=== PATIENT | female | born 1960 | race Native Hawaiian/Other Pacific Islander ===

== ENCOUNTER 2017-06-11 13:12 | Emergency (ER) | payer OTHER ==
[2017-06-11 13:19] VITALS: BP 127/84; PULSE 97; RESP 16; TEMP 98.4; O2SAT 97
--- NOTE | 2017-06-11 14:11 | C.PDOC ---
History Of Present Illness 57 year old female presents to the ED with complaints of productive cough and sore throat for approximately 5 days, worse at night. Patient states she has difficulty sleeping at night due to cough. She denies fever, chest pain, SOB, neck pain, ear pain. Time Seen by Provider: 06/11/17 13:24 Chief Complaint (Nursing): ENT Problem History Per: Patient History/Exam Limitations: no limitations Onset/Duration Of Symptoms: Days (x 5) Current Symptoms Are (Timing): Still Present Location Of Pain: Throat Associated Symptoms: Sore Throat, Cough (Productive). denies: Fever, Other ( Chest pain, Palpitations) Ear Symptoms: Bilateral: None Severity: Mild Past Medical History Reviewed: Historical Data, Nursing Documentation, Vital Signs Vital Signs: Last Vital Signs Temp 98.4 F 06/11/17 13:18 Pulse 97 H 06/11/17 13:18 Resp 16 06/11/17 13:18 BP 127/84 06/11/17 13:18 Pulse Ox 97 06/11/17 16:47 - Medical History PMH: No Chronic Diseases Family History: States: No Known Family Hx - Social History Hx Alcohol Use: No Hx Substance Use: No - Immunization History Hx Tetanus Toxoid Vaccination: No Hx Influenza Vaccination: No Hx Pneumococcal Vaccination: No Review Of Systems Except As Marked, All Systems Reviewed And Found Negative. Constitutional: Negative for: Fever, Chills ENT: Positive for: Throat Pain. Negative for: Ear Pain, Nose Congestion Respiratory: Positive for: Cough, Sputum Gastrointestinal: Negative for: Abdominal Pain Skin: Negative for: Rash Physical Exam - Physical Exam Appears: Well, Non-toxic, Other (hoarse voice, speaking full sentences) Skin: Normal Color, Warm, Dry Eye(s): right: Normal Inspection, left: Other (Injected sclera) Oral Mucosa: Moist Neck: Normal, Supple Cardiovascular: Rhythm Regular Respiratory: Normal Breath Sounds, No Rales, No Rhonchi, No Wheezing Neurological/Psych: Oriented x3 ED Course And Treatment O2 Sat by Pulse Oximetry: 97 (RA) Pulse Ox Interpretation: Normal - Other Rad Chest X-Ray (two views) X-Ray: Viewed By Me, Read By Radiologist Interpretation: HISTORY: COMPARISON: No prior. TECHNIQUE: Chest PA and lateral. FINDINGS: LINES AND TUBES: None. LUNG AND PLEURA: The lungs are well inflated and the right lung is clear. There is patchy airspace disease in the lingula and left lower lobe. HEART AND MEDIASTINUM: The heart is not enlarged. The hilar and mediastinal contours are within normal limits. SKELETAL STRUCTURES: The bony structures are within normal limits for the patient's age. VISUALIZED UPPER ABDOMEN: Normal. OTHER FINDINGS: None. IMPRESSION: Multifocal pneumonia in the lingula and left lower lobe. Follow- up to resolution is advised. Progress Note: CXR ordered and reviewed - shows left sided infiltrate. Patient given PO Avelox, Sudafed and Tessalon. Rxs for Avelox and Tessalon given. Patient instructed to follow up with PMD in 1-2 days, and understands she should return to ED if symptoms worsen. Disposition Counseled Patient/Family Regarding: Studies Performed, Diagnosis, Need For Followup, Rx Given - Disposition Referrals: Cassy Barrow MD [Staff Provider] - Disposition: HOME/ ROUTINE Disposition Time: 14:15 Condition: STABLE Additional Instructions: FOLLOW UP WITH YOUR DOCTOR IN 1-2 DAYS USE MEDICATIONS DIRECTED DRINK PLENTY OF FLUIDS RETURN TO ER IF SYMPTOMS WORSEN Prescriptions: Benzonatate [Tessalon Perles] 100 mg PO BID PRN #15 sgl PRN Reason: Cough Moxifloxacin [Avelox] 400 mg PO DAILY #7 tab Instructions: Pneumonia in Adults Forms: [facility] (Occitan) Print Language: BURMESE - Clinical Impression Clinical Impression: Pneumonia - Scribe Statement The provider has reviewed the documentation as recorded by the Abhinavibayesha Treviño All medical record entries made by the Abhinavibe were at my direction and personally dictated by me. I have reviewed the chart and agree that the record accurately reflects my personal performance of the history, physical exam, medical decision making, and the department course for this patient. I have also personally directed, reviewed, and agree with the discharge instructions and disposition.
--- NOTE | 2017-06-11 14:31 | RAD ---
HISTORY: COMPARISON: No prior. TECHNIQUE: Chest PA and lateral FINDINGS: LINES AND TUBES: None. LUNG AND PLEURA: The lungs are well inflated and the right lung is clear. There is patchy airspace disease in the lingula and left lower lobe. HEART AND MEDIASTINUM: The heart is not enlarged. The hilar and mediastinal contours are within normal limits. SKELETAL STRUCTURES: The bony structures are within normal limits for the patient's age. VISUALIZED UPPER ABDOMEN: Normal. OTHER FINDINGS: None. IMPRESSION: Multifocal pneumonia in the lingula and left lower lobe. Follow-up to resolution is advised.
== END 2017-06-11 14:35 | disposition home or self-care (01) ==
LOC: C.ER 13:12
DX: J18.9 Pneumonia, unspecified organism (principal)

== ENCOUNTER 2018-04-26 10:47 | Emergency (ER) | payer OTHER ==
[2018-04-26 10:57] VITALS: BMI 24.3
[2018-04-26 10:58] VITALS: TEMP 98.8; O2SAT 97
[2018-04-26 12:23] VITALS: BP 134/72; PULSE 85; RESP 18
--- NOTE | 2018-04-26 15:50 | C.PDOC ---
History Of Present Illness 58 y/o female presents to the ER complaining of sore throat which has become gradually worse over the past 1 week. Patient states that she has pain with swallowing. Patient reports that she is able to tolerate PO. She notes that she has subjective fever. Denies having cough, sick contacts, and recent travel. Chief Complaint (Nursing): Cough, Cold, Congestion History Per: Patient History/Exam Limitations: no limitations Onset/Duration Of Symptoms: Days Current Symptoms Are (Timing): Still Present Severity: Moderate Past Medical History Reviewed: Historical Data, Nursing Documentation, Vital Signs Vital Signs: Last Vital Signs Temp 98.8 F 04/26/18 10:57 Pulse 85 04/26/18 12:22 Resp 18 04/26/18 12:22 BP 134/72 04/26/18 12:22 Pulse Ox 97 04/26/18 12:22 - Medical History PMH: No Chronic Diseases Surgical History: Family History: States: No Known Family Hx - Social History Hx Alcohol Use: No Hx Substance Use: No - Immunization History Hx Tetanus Toxoid Vaccination: No Hx Influenza Vaccination: No Hx Pneumococcal Vaccination: No Review Of Systems Except As Marked, All Systems Reviewed And Found Negative. Constitutional: Positive for: Fever (subjective fever). Negative for: Chills ENT: Positive for: Throat Pain Cardiovascular: Negative for: Chest Pain Respiratory: Negative for: Cough, Shortness of Breath Physical Exam - Physical Exam Appears: Non-toxic, No Acute Distress Skin: Normal Color, Warm, Dry Head: Atraumatic, Normacephalic Eye(s): bilateral: Normal Inspection Nose: Normal Oral Mucosa: Moist Throat: No Erythema, No Exudate, Other (tonsillar swelling) Neck: Supple Lymphatic: Adenopathy (anterior cervical lymphadenopathy, left-sided tenderness) Chest: Symmetrical Cardiovascular: Rhythm Regular Respiratory: Normal Breath Sounds, No Rales, No Rhonchi, No Wheezing Neurological/Psych: Oriented x3, Normal Speech ED Course And Treatment O2 Sat by Pulse Oximetry: 97 (RA) Pulse Ox Interpretation: Normal Medical Decision Making Medical Decision Making: Patient has been discharged with prescription for Zithromax and instructed to follow up with PMD in 3-4 days. Disposition - Disposition Referrals: Cassy Barrow MD [Staff Provider] - Disposition: HOME/ ROUTINE Disposition Time: 12:15 Condition: GOOD Additional Instructions: RODRIGO LUIS, thank you for letting us take care of you today. The emergency medical care you received today was directed at your acute symptoms. If you were prescribed any medication, please fill it and take as directed. It may take several days for your symptoms to resolve. Return to the Emergency Department if your symptoms worsen, do not improve, or if you have any other problems. Please contact your doctor or call one of the physicians/clinics you have been referred to that are listed on the Patient Visit Information form that is included in your discharge packet. Bring any paperwork you were given at discharge with you along with any medications you are taking to your follow up visit. Our treatment cannot replace ongoing medical care by a primary care provider outside of the emergency department. Thank you for allowing the [facility] team to be part of your care today. Follow up with your primary care doctor in 3-4 days for re-evaluation and further management. Prescriptions: Azithromycin [Zithromax] 250 mg PO DAILY #6 tab Instructions: Sore Throat, Adult (DC) Forms: [facility] (Peruvian), Work Excuse - Clinical Impression Clinical Impression: Pharyngitis - Scribe Statement The provider has reviewed the documentation as recorded by the Abhinavibe Chirag Irene Provider Attestation: All medical record entries made by the Abhinavibe were at my direction and perso lily dictated by me. I have reviewed the chart and agree that the record accurately reflects my personal performance of the history, physical exam, medical decision making, and the department course for this patient. I have also personally directed, reviewed, and agree with the discharge instructions and disposition.
== END 2018-04-26 12:23 | disposition home or self-care (01) ==
LOC: C.ER 10:47
DX: J02.9 Acute pharyngitis, unspecified (principal)